=== PATIENT | male | born 1960 | race Two or more races ===

== ENCOUNTER 2024-07-24 15:01 | Emergency (ER) | payer MEDICARE, OTHER ==
[~2024-07-24] VITALS: Ht 175.3 cm; Wt 95.0 kg
[2024-07-24 16:12] LABS: Basophils # (auto) 0 10 ^3/uL (0-0.2); Basophils % (auto) 0.1 % (0.0-2.0); Eosinophils # (auto) 0 10 ^3/uL (0-0.8); Eosinophils % (auto) 0.2 % (0.0-7.0); Hematocrit 46.6 % (41.0-53.0); Hemoglobin 15.9 g/dL (13.5-17.5); Lymphocytes % (auto) 6.4 % (10.0-50.0); Mean Corpuscular Hgb Conc. 34.2 g/dL (32.0-36.0); Mean Corpuscular Volume 87.8 fL (80.0-100.0); Monocytes # (auto) 0.7 10 ^3/uL (0-1.3); Monocytes % (auto) 4.4 % (0.0-12.0); Neutrophils # (auto) 13.4 10 ^3/uL (1.6-8.6); Neutrophils % (auto) 88.9 % (37.0-80.0); Platelet Count (auto) 335 10^3/uL (140-450); Red Blood Cells 5.31 10^6/uL (4.5-5.90); Red Cell Distribution Width 13.3 % (11.8-14.3); White Blood Cell 15.1 10^3/uL (4.4-10.8)
--- NOTE | 2024-07-24 16:18 | DVH ---
XY CHEST TWO VIEWS ROUTINE CLINICAL HISTORY: cp COMPARISON: None TECHNIQUE: Frontal and lateral view of the chest was obtained FINDINGS: Lines and Tubes: None Lungs: No focal consolidation. Pleura: No effusion. No pneumothorax. Cardiomediastinal contours: Unremarkable Bones: No acute osseous abnormality. IMPRESSION: No acute cardiopulmonary disease.
[2024-07-24 16:23] LABS: Albumin 4.7 g/dL (3.2-4.8); Alkaline Phosphatase 86 U/L (46-116); Anion Gap 11 (5-15); Aspartate Aminotransferase 29 U/L (13-40); BUN/Creatinine Ratio 17.3 (10.0-20.0); Carbon Dioxide 25 mmol/L (20-31); Chloride 103 mmol/L (98-107); Potassium 4.6 mmol/L (3.5-5.1); Sodium 139 mmol/L (136-145)
[2024-07-24 16:24] LABS: Bilirubin, Total 0.6 mg/dL (0.2-1.0); Total Protein 7.3 g/dL (5.7-8.2)
[2024-07-24 16:27] LABS: Alanine Aminotransferase 71 U/L (7-40); Blood Urea Nitrogen 24 mg/dL (9-23); Calcium 10.5 mg/dL (8.7-10.4); Glucose 130 mg/dL (74-106)
--- NOTE | 2024-07-24 17:04 | ED.PDOC ---
History of Present Illness [facility] Comments Year old male who presents to the emergency department with chest pain patient reports he was sitting on his couch approximately 1 hour ago with a sudden onset of a sharp chest pain and cramping all over his body in the center of his chest with no radiation. Pain is currently 3/10. He states for the past week he has had cold/flu-like symptoms with whole-body cramping. Patient is not from the area he is visiting. Patient denies any significant past medical history including hypertension, hyperlipidemia, diabetes, smoking, cardiac disease. He has not take any medications regularly. No associated shortness of breath, lightheadedness dizziness, weakness, nausea, vomiting, diaphoresis. Chief Complaint: Chest Pain Time Seen by MD: 15:26 Allergies: Coded Allergies: NO KNOWN ALLERGIES (Unverified , 07/24/24) Home Meds Active Scripts Ondansetron Odt 4MG Tab (ZOFRAN PO) 4 Mg Tb, 4 MG PO TID for 5 Days, #15 TAB ODT TAB-DISSOLVE IN MOUTH, THEN SWALLOW Prov:ABI HUDSON MD 07/24/24 Review of Systems: As stated in HPI Vital Signs Vital Signs Date Time Temp Pulse Resp B/P (MAP) Pulse Ox O2 Delivery O2 Flow Rate FiO2 07/24/24 20:42 98.9 54 18 149/76 (100) 98 98.9 07/24/24 17:55 Room Air Physical Exam General: Awake, alert and oriented. No acute distress. Skin: Skin in warm, dry and intact. Appropriate color for ethnicity. Nailbeds pink with no cyanosis. HEENT: The head is normocephalic and atraumatic. Conjunctivae are clear without exudates or hemorrhage. Sclera is non-icteric. EOM are intact. No signs of nystagmus. Eyelids are normal in appearance without swelling or lesions. Oral mucosa is pink and moist Neck: The neck is supple with normal range of motion. No JVD. Cardiac: Heart rate and rhythm are normal. No murmurs, gallops, or rubs are auscultated. Respiratory: No signs of respiratory distress. Lung sounds are clear in all lobes bilaterally without rales, ronchi, or wheezes. Abdominal: Abdomen is soft, non-tender without distention. Bowel sounds are present and normoactive in all four quadrants. Extremities: Upper and lower extremities are atraumatic in appearance without deformity or edema. Neurological: The patient is awake, alert and oriented to person, place, and time with normal speech. Speech is clear. There is no facial asymmetry. Psychiatric: Appropriate mood and affect. Good judgement and insight. No visual or auditory hallucinations. Was a procedure done? Was a procedure done?: No EKG EKG : Comments 3:03 p.m.: Sinus rhythm, rate 53, QTC 418, QRS -55, no STEMI; 4:06 p.m.: Sinus rhythm, rate 52, QTC 413, QRS negative 42, no STEMI Differential Dx Considerations may include: Differential diagnoses considered include acute ischemic coronary syndrome, aortic dissection, cardiac tamponade, mediastinitis, pulmonary embolus, pneumothorax, tension pneumothorax, esophageal rupture, coronary artery vasospasm, myocarditis, pericarditis, pneumonia, pulmonary edema, esophageal tear, pancreatitis, aortic stenosis, dilated cardiomyopathy, hypertrophic cardiomyopathy, mitral valve prolapse, malignancy, pleuritis, pneumomediastinum, primary pulmonary hypertension, cholecystitis, esophageal spasm, esophagus, gastritis, GERD, peptic ulcer disease, costochondritis, fibromyalgia, rib fracture, herpes zoster, radicular syndromes, thoracic outlet syndrome, somatization. X-Ray, Labs, Meds, VS Vital Signs Date Time Temp Pulse Resp B/P (MAP) Pulse Ox O2 Delivery O2 Flow Rate FiO2 07/24/24 20:42 98.9 54 18 149/76 (100) 98 98.9 07/24/24 18:48 55 19 173/82 (112) 98 07/24/24 18:47 55 19 173/82 07/24/24 18:09 51 07/24/24 18:06 53 18 173/80 07/24/24 17:55 97.5 53 18 173/80 (111) 98 97.5 07/24/24 17:55 53 18 98 Room Air 07/24/24 17:31 98.6 57 16 188/52 (97) 99 07/24/24 16:06 52 07/24/24 15:03 53 Lab Test 07/24/24 18:19 07/24/24 17:41 07/24/24 16:20 07/24/24 15:36 Range/Units Troponin I High Sensitivity 5 6 </=54 ng/L Influenza Type A Antigen Negative Negative Influenza Type B Antigen Negative Negative SARS-CoV-2 Antigen (Rapid) Negative NEGATIVE D-Dimer, Quantitative 0.24 0.0-0.49 mg/L FEU Test 07/24/24 15:34 Range/Units White Blood Count 15.1 H 4.4-10.8 10^3/uL Red Blood Count 5.31 4.5-5.90 10^6/uL Hemoglobin 15.9 13.5-17.5 g/dL Hematocrit 46.6 41.0-53.0 % Mean Corpuscular Volume 87.8 80.0-100.0 fL Mean Corpuscular Hemoglobin 30.0 28.0-32.0 pg Mean Corpuscular Hemoglobin Concent 34.2 32.0-36.0 g/dL Red Cell Distribution Width 13.3 11.8-14.3 % Platelet Count 335 140-450 10^3/uL Mean Platelet Volume 8.0 6.9-10.8 fL Neutrophils (%) (Auto) 88.9 H 37.0-80.0 % Lymphocytes (%) (Auto) 6.4 L 10.0-50.0 % Monocytes (%) (Auto) 4.4 0.0-12.0 % Eosinophils (%) (Auto) 0.2 0.0-7.0 % Basophils (%) (Auto) 0.1 0.0-2.0 % Neutrophils # (Auto) 13.4 H 1.6-8.6 10 ^3/uL Lymphocytes # (Auto) 1.0 0.4-5.4 10 ^3/uL Monocytes # (Auto) 0.7 0-1.3 10 ^3/uL Eosinophils # (Auto) 0 0-0.8 10 ^3/uL Basophils # (Auto) 0 0-0.2 10 ^3/uL Nucleated Red Blood Cells 0.0 % Sodium Level 139 136-145 mmol/L Potassium Level 4.6 3.5-5.1 mmol/L Chloride Level 103 98-107 mmol/L Carbon Dioxide Level 25 20-31 mmol/L Anion Gap 11 5-15 Blood Urea Nitrogen 24 H 9-23 mg/dL Creatinine 1.39 H 0.700-1.30 mg/dL Glomerular Filtration Rate Calc 56 >90 mL/min BUN/Creatinine Ratio 17.3 10.0-20.0 Serum Glucose 130 H 74-106 mg/dL Calcium Level 10.5 H 8.7-10.4 mg/dL Total Bilirubin 0.6 0.2-1.0 mg/dL Aspartate Amino Transferase (AST) 29 13-40 U/L Alanine Aminotransferase (ALT) 71 H 7-40 U/L Alkaline Phosphatase 86 46-116 U/L Troponin I High Sensitivity 8 </=54 ng/L B-Type Natriuretic Peptide 17.18 0-100 pg/mL Total Protein 7.3 5.7-8.2 g/dL Albumin 4.7 3.2-4.8 g/dL Current Medications Medications (Trade) Dose Ordered Sig/Allison Route Start Time Stop Time Status Last Admin Aspirin 324 mg ONCE ONCE PO 07/24/24 15:45 07/24/24 15:46 DC 07/24/24 17:58 Morphine Sulfate 2 mg ONCE ONCE IV 07/24/24 15:45 07/24/24 15:46 DC 07/24/24 18:06 Sodium Chloride 1,000 ml @ 1,000 mls/hr Q1H ONCE IV 07/24/24 17:00 07/24/24 17:59 DC 07/24/24 17:58 Ondansetron HCl (Zofran) 4 mg ONCE ONCE IV 07/24/24 19:00 07/24/24 19:01 DC 07/24/24 19:13 XY CHEST TWO VIEWS ROUTINE CLINICAL HISTORY: cp COMPARISON: None TECHNIQUE: Frontal and lateral view of the chest was obtained FINDINGS: Lines and Tubes: None Lungs: No focal consolidation. Pleura: No effusion. No pneumothorax. Cardiomediastinal contours: Unremarkable Bones: No acute osseous abnormality. IMPRESSION: No acute cardiopulmonary disease. Time of 1ST Reevaluation: 23:26 Reevaluation 1ST: N/A Patient Education/Counseling: Diagnosis, Treatment, Prognosis, Need For Follow Up Family Education/Counseling: No Family Present Departure 1 Departure Time of Disposition: 19:25 Impression: Primary Impression: Chest pain Additional Impression: Acute kidney injury Disposition: 01 HOME / SELF CARE / HOMELESS Condition: Stable Additional Instructions: ED DISCHARGE INSTRUCTIONS Instructions: Please read all instructions provided in this packet carefully. Your labs show that you are dehydrated today. It is very important that you follow up with the primary care provider within the next few days to have your labs rechecked to ensure that your kidney function has improved. Although you have been discharged from the Emergency Department, this does not mean that you have a "clean bill of health". No definitive diagnosis for your symptoms has been made today. It is possible that you are in the process of developing a serious illness. This is why you must return to the ED without fail if any new or worsening symptoms (especially if your symptoms include chest pain, trouble breathing, abdominal pain, fever, headache, confusion, trouble seeing, or trouble walking) It is also very important that you see a primary care doctor within the next 3-5 days to follow up. If you are unable to get an appointment, return to the ED for re-evaluation. Preventing Dehydration Adults Dehydration is when the body dries out because of drinking too little fluid, losing too much fluid, or both. Normal fluid loss happens with breathing, urination, and sweating. Too much fluid can be lost through vomiting, diarrhea, or excessive sweating. Dehydration can occur quickly in older adults and may lead to serious health conditions. You may be dehydrated if you experience: dark colored urine frequent urination and only pass a small amount dry mouth or coated tongue constipation or small and hard stools dry skin frequent urinary tract infection headache confusion dizziness or lightheadedness after standing up fast heart rate dry eyes You may not have all of these symptoms at the same time, but all may be caused by not drinking enough fluids. What can I do to prevent dehydration? The best way to replace fluids is to drink enough daily. Many older people do not feel thirsty and are not aware of the need to drink. Men 13 cups/day (3.0L) Women 9 cups/day (2.7L) What should I drink? At least half of what you drink should be water. Good choices of fluid are: Water or calorie-free flavored water Fruit or vegetable juices Milk Decaffeinated or herbal teas Low sodium broth or soups Poor choices are: Canned soups, which can be a hidden source of salt Soft drinks and sports drinks high in sugar Caffeinated drinks such as coffee, tea, and hot chocolate Alcohol *Caffeinated and alcoholic drinks may cause fluid loss. *Alcoholic drinks should be limited to two drinks/day for men and one for women. 1 Drink = 12oz beer, 6oz wine, or 1oz liquor Simple ways to drink more: Use large, easy to hold cups Leave a glass of fluid at your bedside or sitting area Choose a variety of fluids based on what you like Drink fluids during and between meals Remind older adults to drink enough fluid daily e-Prescriptions Ondansetron Odt 4MG Tab (ZOFRAN PO) 4 Mg Tb 4 MG PO TID for 5 Days, #15 TAB ODT TAB-DISSOLVE IN MOUTH, THEN SWALLOW Prov: ABI HUDSON MD 07/24/24 Comments [age] yo male with chest pain. Serial EKG negative for signs of ischemia. Serial High sensitivity troponin negative. CXR shows no acute process. D-dimer negative. Presentation not suggestive of acute coronary syndrome, pulmonary embolism or aortic dissection. Patient improved at time of discharge. No hypoxia, respiratory distress or dyspnea at discharge. Patient able to ambulate without difficulty. Extensive evaluation was performed in attempt to identify or rule out: (See differential diagnosis section) The following tests were ordered, and results were reviewed by me: (See diagnostic results section) The following test were independently interpreted by me: EKG, chest x-ray-no acute disease I reviewed and agreed with the following test results read by other providers: Chest X-ray I reviewed the following notes from the pt's past medical encounters: (None available at this time) Additional information was gathered from interviewing the following independent historians: N/A Discussion of management or test interpretation with external physician/other qualified health urgent care nurse practitioner: N/A Addressed an acute or chronic illness that poses a threat to life or bodily function: Chest pain, acute kidney injury Decision regarding hospitalization or escalation of hospital level of care: Risks and benefits of admission for further treatment of patient's condition was considered however due to patient's stable condition patient will be discharged to follow up closely or return to care for worsening of condition or inability to follow up. Diagnosis or treatment significantly limited by social determinants of health: Patient's primary care provider is out of state Critical Care Note Critical Care Time?: No Stability Stability form required: Yes Heart Score Heart Score: Heart Score Response (Comments) Value History Slightly Suspicious 0 EKG Normal 0 Age >65 2 Risk Factors No known risk factors 0 Troponin Normal limit 0 Total 2 ABI HUDSON MD Jul 24, 2024 17:04
[2024-07-24] MEDS: SODIUM CHLORIDE 0.9% 1,000 ML IV ONE (17:58)
[2024-07-24] MEDS: ASPirin 81 mg TAB PO ONE (17:58)
[2024-07-24] MEDS: MORPHINE SULFATE INJ 2 MG/ml SYRG IV ONE (18:06)
[2024-07-24 18:24] LABS: Rapid Influenza A Negative (Negative); Rapid Influenza B Negative (Negative)
[2024-07-24 18:25] LABS: COVID19 ANTIGEN SOFIA FIA NEGATIVE (NEGATIVE)
--- NOTE | 2024-07-24 19:01 | ECG ---
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
--- NOTE | 2024-07-24 19:02 | ECG ---
[facility] Test Date: 2024-07-24 Test Time: 16:06:50 Pat Name: CLARISSE REID Department: ED Room: Gender: M Personal Care Aid: KORIN : 1960 Requested By: VAHID PACHECO Order Number: [id number] Reading MD: Measurements Intervals [place] Rate: 52 P: 2 VT: 183 QRS: -42 QRSD: 110 T: 21 QT: 444 QTc: 413 Interpretive Statements Sinus rhythm Left anterior fascicular block Please click the below link to view image of tracing.
--- NOTE | 2024-07-24 19:02 | ECG ---
[facility] Test Date: 2024-07-24 Test Time: 18:09:23 Pat Name: CLARISSE REID Department: ED Room: Gender: M Waste Collector: KORIN : 1960 Requested By: VAHID PACHECO Order Number: [id number] Reading MD: Measurements Intervals [place] Rate: 51 P: -43 MD: 166 QRS: -43 QRSD: 120 T: 14 QT: 462 QTc: 426 Interpretive Statements Sinus rhythm Left anterior fascicular block Probable left ventricular hypertrophy Baseline wander in lead(s) V3 Please click the below link to view image of tracing.
[2024-07-24] MEDS: ONDANSETRON HCL 4 MG/2 ML VIAL IV ONE (19:13)
[2024-07-24] MEDS ORDERED: ZOFR4T PO (19:30)
[2024-07-24 20:42] VITALS: BP 149/76; PULSE 54; RESP 18; TEMP 98.9; O2SAT 98
== END 2024-07-24 20:45 | disposition home or self-care (01) ==
LOC: EDBD 15:01 → ER 15:01
DX: R07.9 Chest pain, unspecified (principal); N17.9 Acute kidney failure, unspecified; Z20.822 Contact with and (suspected) exposure to COVID-19
CPT/HCPCS: 36415; 71046; 80053; 83880; 84484; 85025; 85379; 87426; 87804; 93005; 96361; 96374; 96375; 99285; J2270; J2405; J7030